=== PATIENT | female | born 1945 | race Asian ===

== ENCOUNTER 2024-06-01 15:36 | Inpatient (IN) | payer MEDICARE, MEDICAID ==
[~2024-06-01] VITALS: Ht 149.9 cm; Wt 72.1 kg
[2024-06-01 16:21] LABS: BASOPHILS # (AUTO) 0.1 K/uL (0.0-0.2); BASOPHILS % (AUTO) 1.2 % (0.0-2.0); EOSINOPHILS # (AUTO) 0.2 K/uL (0.0-0.4); EOSINOPHILS % (AUTO) 1.4 % (0.0-4.0); HEMATOCRIT 32.4 % (36-48); HEMOGLOBIN 10.3 g/dL (12.0-16.0); LYMPHOCYTES # (AUTO) 0.5 K/uL (1.0-5.5); LYMPHOCYTES % (AUTO) 3.9 % (20.5-51.5); MEAN CORPUSCULAR HEMOGLOBIN 31 pg (27-31); MEAN CORPUSCULAR HGB CONC 32 % (32-36); MEAN CORPUSCULAR VOLUME 98 fL (79.0-98.0); MONOCYTES # (AUTO) 1.2 K/uL (0.0-1.0); MONOCYTES % (AUTO) 9.6 % (1.7-9.3); NEUTROPHILS # (AUTO) 10.4 K/uL (1.8-7.7); NEUTROPHILS % (AUTO) 83.9 % (40.0-70.0); PLATELET COUNT (AUTO) 151 K/uL (130-430); RED BLOOD CELL COUNT(AUTO) 3.32 MIL/uL (4.2-6.2); RED CELL DISTRIBUTION WIDTH 20.7 % (9.0-15.0); WHITE BLOOD COUNT (AUTO) 12.4 K/uL (4.8-10.8)
[2024-06-01 16:26] VITALS: BP_SYST 127; PULSE 65; RESP 18; TEMP 97.8; O2SAT 93; O2SAT 96
[2024-06-01 16:37] LABS: ALANINE AMINOTRANSFERASE 18 U/L (12-78); ALBUMIN 3.2 g/dL (3.4-4.8); ANION GAP 16 (5-15); ASPARTATE AMINOTRANSFERASE 26 U/L (10-37); CALCIUM 8.7 mg/dL (8.4-11.0); CARBON DIOXIDE 22 mmol/L (23-29); CHLORIDE 95 mmol/L (98-107); GLUCOSE 296 mg/dL (74-106); POTASSIUM 3.6 mmol/L (3.5-5.1); SODIUM SERUM 133 mmol/L (136-145); TOTAL BILIRUBIN 0.6 mg/dL (0.0-1.0); UREA NITROGEN, BLOOD 53 mg/dL (8-21)
[2024-06-01 16:53] LABS: BILIRUBIN,DIRECT 0.3 mg/dL (0.0-0.3)
[2024-06-01] MEDS ORDERED: LEVE500T9 PO (17:19)
[2024-06-01] MEDS ORDERED: LIP40 PO (17:19)
[2024-06-01] MEDS ORDERED: LEVO75CA5 PO (17:19)
[2024-06-01] MEDS ORDERED: MIDO5TAB4 PO (17:19)
[2024-06-01] MEDS ORDERED: CALC600T20 PO (17:19)
[2024-06-01] MEDS ORDERED: NEPH PO (17:19)
[2024-06-01] MEDS ORDERED: FOLI0.8T2 PO (17:19)
[2024-06-01] MEDS ORDERED: APIX5TAB PO (17:19)
[2024-06-01 18:28] LABS: INR 1.1 (0.8-1.2); PROTHROMBIN TIME 11.5 SECS (9.5-12.5)
[2024-06-01] MEDS ORDERED: DEXTROSE 50% JECT 50 ML DISP.SYRIN IVP PRN (19:30)
[2024-06-01] MEDS: levETIRAcetam 500 MG TABLET PO SCH (21:29)
[2024-06-01] MEDS: INSULIN REGULAR, HUMAN 100 UNITS/ML, 3 ML VIAL (humuLIN R) SUBCUT PRN (21:35)
[2024-06-01] MEDS ORDERED: INSULIN REGULAR, HUMAN 10 UNITS/0.1 ML, 3 ML VIAL ONE (21:37)
[2024-06-01] MEDS: cefTRIAXone 1 GM in D5W 50 ML IV SCH (21:40)
[2024-06-01] MEDS: APIXABAN 2.5 MG TABLET PO SCH (22:29)
[2024-06-01] MEDS: MIDODRINE HCL 5 MG TABLET (PROAMATINE) PO SCH (22:29)
[2024-06-01 22:30] VITALS: BP_SYST 118; PULSE 62; PULSE 65; RESP 24; RESP 26; TEMP 96.7; O2SAT 100; O2SAT 98
[2024-06-02] VITALS (30 sets, daily range): BP systolic 90–136; PULSE 60–71; RESP 16–41; TEMP 96.5–98.6; O2SAT 93–100
[2024-06-02] MEDS: CALCIUM 500 MG/TAB PO SCH (08:24)
[2024-06-02] MEDS: LEVOTHYROXINE SODIUM 0.075 MG TABLET PO SCH (08:24)
[2024-06-02] MEDS: ATORVASTATIN 20 MG TABLET PO SCH (08:26)
[2024-06-02] MEDS: NEPHROVITE, (FOLIC ACID/VITAMIN B COMP W-C 1 TAB) PO SCH (08:27)
[2024-06-02 08:57] LABS: BASOPHILS # (AUTO) 0.1 K/uL (0.0-0.2); BASOPHILS % (AUTO) 0.9 % (0.0-2.0); EOSINOPHILS # (AUTO) 0.3 K/uL (0.0-0.4); EOSINOPHILS % (AUTO) 3.3 % (0.0-4.0); HEMATOCRIT 32.7 % (36-48); HEMOGLOBIN 10.2 g/dL (12.0-16.0); LYMPHOCYTES # (AUTO) 0.6 K/uL (1.0-5.5); MEAN CORPUSCULAR HEMOGLOBIN 31 pg (27-31); MEAN CORPUSCULAR HGB CONC 31 % (32-36); MEAN CORPUSCULAR VOLUME 99 fL (79.0-98.0); MONOCYTES # (AUTO) 1.1 K/uL (0.0-1.0); MONOCYTES % (AUTO) 13.8 % (1.7-9.3); NEUTROPHILS # (AUTO) 5.9 K/uL (1.8-7.7); PLATELET COUNT (AUTO) 131 K/uL (130-430); RED BLOOD CELL COUNT(AUTO) 3.31 MIL/uL (4.2-6.2); RED CELL DISTRIBUTION WIDTH 20.7 % (9.0-15.0)
[2024-06-02] MEDS ORDERED: NEPHROVITE, (FOLIC ACID/VITAMIN B COMP W-C 1 TAB) PO SCH (09:00)
[2024-06-02] MEDS ORDERED: CALCIUM CARBONATE PO SCH (09:00)
[2024-06-02 09:30] LABS: ALANINE AMINOTRANSFERASE 20 U/L (12-78); ALBUMIN 2.9 g/dL (3.4-4.8); ANION GAP 13 (5-15); ASPARTATE AMINOTRANSFERASE 45 U/L (10-37); CALCIUM 8.2 mg/dL (8.4-11.0); CARBON DIOXIDE 27 mmol/L (23-29); CHLORIDE 94 mmol/L (98-107); CREATININE 7.49 mg/dL (0.55-1.30); GLUCOSE 243 mg/dL (74-106); PHOSPHORUS 5.7 mg/dL (2.7-4.5); SODIUM SERUM 134 mmol/L (136-145); TOTAL BILIRUBIN 0.5 mg/dL (0.0-1.0); TOTAL PROTEIN, SERUM 6.8 g/dL (6.4-8.3); UREA NITROGEN, BLOOD 59 mg/dL (8-21)
[2024-06-02] MEDS: IPRATROPIUM/ALBUTEROL SULFATE 3 ML AMPUL.NEB (DUONEB) INH SCH (13:23)
[2024-06-03] MEDS ORDERED: BALSAM PERU/CASTOR OIL 56.7 GM OINT...G. TP SCH (09:00)
== END 2024-06-02 22:48 | disposition short-term general hospital (02) | DRG 871 ==
LOC: SED 15:36 → STU 18:08 → SIC 23:42
PROVIDERS: ADMIT Internal Medicine; ATTEND Internal Medicine
DX: A41.9 Sepsis, unspecified organism (principal); I21.4 Non-ST elevation (NSTEMI) myocardial infarction; I50.41 Acute combined systolic (congestive) and diastolic (congestive) heart failure; J18.9 Pneumonia, unspecified organism; J96.00 Acute respiratory failure, unspecified whether with hypoxia or hypercapnia; N18.6 End stage renal disease; I13.2 Hypertensive heart and chronic kidney disease with heart failure and with stage 5 chronic kidney disease, or end stage renal disease; D63.8 Anemia in other chronic diseases classified elsewhere; E11.51 Type 2 diabetes mellitus with diabetic peripheral angiopathy without gangrene; I48.91 Unspecified atrial fibrillation; E11.22 Type 2 diabetes mellitus with diabetic chronic kidney disease; E78.00 Pure hypercholesterolemia, unspecified; Z79.01 Long term (current) use of anticoagulants; Z79.4 Long term (current) use of insulin; Z90.49 Acquired absence of other specified parts of digestive tract; Z90.710 Acquired absence of both cervix and uterus; Z95.0 Presence of cardiac pacemaker; Z95.2 Presence of prosthetic heart valve; Z99.2 Dependence on renal dialysis
CPT/HCPCS: 36415; 71045; 80048; 80053; 80076; 82948; 83880; 84100; 84484; 85025; 85610; 85730; 87040; 87081; 93005; 93306; 94070; 94640; 99291; J0696; J1815; J1956; J7060